=== PATIENT | male | born 1980 | race Caucasian/White ===

== ENCOUNTER 2018-10-11 11:35 | Emergency (ER) | payer MEDICAID ==
[~2018-10-11] VITALS: Ht 177.8 cm; Wt 81.6 kg
[2018-10-11 11:35] VITALS: BP_SYST 155
--- NOTE | 2018-10-11 11:35 | NUR ---
BROUGHT BACK TO [facility] AND TRIAGED. REPORT GIVEN TO SWETA
--- NOTE | 2018-10-11 11:36 | NUR ---
Pt AAOx4 BIB [facility] for medical clearance. Per [employer], pt punched car window with R hand. Pt reports 4/10 teixeira to R hand. Skin dry and warm, breathing even and unlabored. No other injuries/complaints per pt/noted. Will continue to monitor.
--- NOTE | 2018-10-11 11:38 | NUR ---
SEEN AND EVALUATED BY DR SOUZA.
[2018-10-11] MEDS ORDERED: DIPH-TET-PERTUS Vaccine 0.5 ML VIAL (ADACEL) I.M. ONE (11:45)
--- NOTE | 2018-10-11 11:55 | NUR ---
Pt off unit to radiology in stable condition
--- NOTE | 2018-10-11 12:05 | NUR ---
Pt returned from radiology in stable condition.
--- NOTE | 2018-10-11 12:08 | NUR ---
Medication administered. Pt tolerated well. No adverse reactions noted.
--- NOTE | 2018-10-11 12:35 | NUR ---
Verbal order from MD Weaver of Lidocaine 1% for pt.
--- NOTE | 2018-10-11 12:40 | NUR ---
Pt moved to bed 07
[2018-10-11] MEDS ORDERED: LIDOCAINE 1% 10 MG/ML, 20 ML MDV INJ ONE (12:45)
--- NOTE | 2018-10-11 13:10 | NUR ---
Dr. Weaver at bedside using sterile technique to remove glass from pt's R hand. Site cleansed and bandaids were applied to R 3rd and 5th digits. Pt tolerated well.
[2018-10-11 13:33] VITALS: BP_SYST 146
--- NOTE | 2018-10-11 13:33 | NUR ---
Patient given written and verbal discharge instructions and verbalizes understanding. ER MD Weaver discussed with patient the results and treatment provided. Patient in stable condition. ID arm band removed. No Rx given. Patient educated on pain management and to follow up with PMD. Pain Scale 0. Opportunity for questions provided and answered. Medication side effect fact sheet provided.
== END 2018-10-11 13:33 ==
LOC: SED 11:35
DX: S61.421A Laceration with foreign body of right hand, initial encounter (principal); R03.0 Elevated blood-pressure reading, without diagnosis of hypertension; W22.8XXA Striking against or struck by other objects, initial encounter; Y93.89 Activity, other specified; Y92.89 Other specified places as the place of occurrence of the external cause; Y99.8 Other external cause status
CPT/HCPCS: 10120; 73130; 90471; 90715; 99284; J2001

== ENCOUNTER 2020-01-23 09:22 | Emergency (ER) | payer MEDICAID ==
[~2020-01-23] VITALS: Ht 175.3 cm; Wt 86.2 kg
[2020-01-23 09:35] VITALS: BP_SYST 118
[2020-01-23 09:45] VITALS: BP_SYST 118
== END 2020-01-23 09:45 | disposition home or self-care (01) ==
LOC: SED 09:22
DX: B35.3 Tinea pedis (principal)
CPT/HCPCS: 99283